=== PATIENT | male | born 1990 | race Hispanic/Latino ===

== ENCOUNTER 2020-05-18 23:38 | Inpatient (IN) | payer BC ==
[~2020-05-18 23:38] MED LIST: Iopamidol-370 76% 500 ML 1 ML ONE
[2020-05-18] MEDS ORDERED: Lorazepam 2 MG/ML VIAL ONE (23:59)
[2020-05-19] MEDS ORDERED: Ondansetron PF 4 MG/2 ML Vial ONE
[2020-05-19 00:02] LABS: #Basophils 0.1 thou/uL (0.0-0.2); #Eosinphils 0.2 thou/uL (0.0-0.7); #Lymphocytes 2.2 thou/uL (1.20-3.40); #Monocytes 0.7 thou/uL (0.11-0.59); #Neutrophils 11.6 thou/uL (1.40-6.50); %Basophils 0.9 % (0.0-1.0); %Eosinophils 1.3 % (0.0-10.0); %Lymphocytes 14.9 % (21.0-51.0); %Monocytes 4.6 % (0.0-10.0); %Neutrophils 78.4 % (42.0-75.0); Hemoglobin 16.6 g/dL (14.0-18.0); Mean Corpuscular HGB CONC 35.4 g/dL (32.0-36.0); Mean Corpuscular Hemoglobin 34.4 pg (27.0-31.0); Mean Corpuscular Volume 97.1 fL (78.0-98.0); Mean Platelet Volume 8.3 fL (7.4-10.4); Platelet Count 239 thou/uL (130-400); RBC Distribution Width 11.7 % (11.5-14.5); Red Blood Cell (RBC) Count 4.82 mill/uL (4.70-6.10); White Blood Cell (WBC) Count 14.9 thou/uL (4.8-10.8)
[2020-05-19] MEDS ORDERED: Haloperidol Lactate 5 MG/ML VIAL ONE (00:22)
[2020-05-19 00:24] LABS: ALT (SGPT) 40 U/L (8-55); AST (SGOT) 26 U/L (5-34); Albumin 4.3 g/dL (3.5-5.0); Alkaline Phosphatase 60 U/L (40-110); Anion Gap 17 mmol/L (10-20); BUN (Urea Nitrogen) 13 mg/dL (8.9-20.6); Bilirubin, Total 0.5 mg/dL (0.2-1.2); Calc. Creatinine Clearance 0 mL/min (70-130); Carbon Dioxide 21 mmol/L (22-29); Chloride 103 mmol/L (98-107); Globulin 3.2 g/dL (2.4-3.5); Glucose 157 mg/dL (70-105); Lipase 15 U/L (8-78); Potassium 3.4 mmol/L (3.5-5.1); Protein, Total 7.5 g/dL (6.0-8.3); Sodium 138 mmol/L (136-145)
[2020-05-19] MEDS ORDERED: Sucralfate 1 GM/10 ML UDCUP ONE (00:48)
[2020-05-19] MEDS ORDERED: Morphine 4 MG/ML VIAL ONE (01:15)
[2020-05-19] MEDS ORDERED: Ketorolac Tromethamine 30 MG/ML VIAL IVP PRN (03:51)
[2020-05-19] MEDS ORDERED: Ondansetron PF 4 MG/2 ML Vial IVP PRN (04:00)
[2020-05-19] MEDS ORDERED: Ondansetron ODT 4 MG TAB SL PRN (04:00)
[2020-05-19] MEDS ORDERED: Acetaminophen 325 MG TAB PO PRN (04:00)
[2020-05-19] MEDS ORDERED: Sodium Chloride 0.9% 1,000 ML IV SCH (04:00)
[2020-05-19 04:15] VITALS: BMI 26.4
[2020-05-19 08:35] LABS: SARS-CoV-2 PCR by NAA Not Detected (NotDetected)
[2020-05-19] MEDS ORDERED: Lactated Ringer's 1,000 ML IV SCH (09:00)
[2020-05-19] MEDS ORDERED: Ibuprofen 600 MG TAB PO PRN (11:42)
[2020-05-19] MEDS ORDERED: Acetaminophen 500 MG TAB PO PRN (11:42)
[2020-05-19 12:00] VITALS: BP 131/80; TEMP 98
[2020-05-19] MEDS ORDERED: Ketorolac Tromethamine 30 MG/ML VIAL IVP SCH (12:00)
== END 2020-05-19 12:33 | disposition home or self-care (01) | DRG 446 ==
LOC: ERS 23:38 → SJJU 05-19 03:03
PROVIDERS: ADMIT Specialist; ATTEND Specialist
DX: K80.00 Calculus of gallbladder with acute cholecystitis without obstruction (principal); F10.10 Alcohol abuse, uncomplicated
CPT/HCPCS: 74177; 76705; 80053; 82150; 83690; 85025; 87635; 93005; 94760; 96365; 96375; J1630; J1956; J2060; J2270; J2405; Q9967; U0003; U0005

== ENCOUNTER 2022-03-31 18:33 | Inpatient (IN) | payer BC, OTHER ==
[2022-03-31] MEDS ORDERED: Ketorolac Tromethamine 30 MG/ML VIAL ONE (19:40)
[2022-03-31 19:52] LABS: #Eosinphils 0.2 thou/uL (0.0-0.7); #Lymphocytes 1.1 thou/uL (1.20-3.40); #Monocytes 0.5 thou/uL (0.11-0.59); #Neutrophils 8.9 thou/uL (1.40-6.50); %Basophils 0.1 % (0.0-1.0); %Eosinophils 1.7 % (0.0-10.0); %Lymphocytes 10.4 % (21.0-51.0); %Monocytes 4.8 % (0.0-10.0); %Neutrophils 82.9 % (42.0-75.0); Hemoglobin 16.3 g/dL (14.0-18.0); Mean Corpuscular HGB CONC 34.2 g/dL (32.0-36.0); Mean Corpuscular Hemoglobin 34.7 pg (27.0-31.0); Mean Platelet Volume 8.3 fL (7.4-10.4); Platelet Count 179 10x3/uL (130-400); RBC Distribution Width 11.9 % (11.5-14.5); Red Blood Cell (RBC) Count 4.69 mill/uL (4.70-6.10); White Blood Cell (WBC) Count 10.8 10x3/uL (4.8-10.8)
[2022-03-31 20:12] LABS: ALT (SGPT) 102 U/L (8-55); AST (SGOT) 57 U/L (5-34); Albumin 4.3 g/dL (3.5-5.0); Alkaline Phosphatase 64 U/L (40-110); Anion Gap 12 mmol/L (10-20); BUN (Urea Nitrogen) 17 mg/dL (8.9-20.6); Bilirubin, Total 0.7 mg/dL (0.2-1.2); Calc. Creatinine Clearance 0 mL/min (70-130); Calcium 9.4 mg/dL (7.8-10.44); Carbon Dioxide 27 mmol/L (22-29); Chloride 104 mmol/L (98-107); Estimated GFR 90; Globulin 3.4 g/dL (2.4-3.5); Glucose 97 mg/dL (70-105); Lipase 29 U/L (8-78); Potassium 4.8 mmol/L (3.5-5.1); Protein, Total 7.7 g/dL (6.0-8.3); Sodium 138 mmol/L (136-145)
[2022-03-31] MEDS ORDERED: Ondansetron PF 4 MG/2 ML Vial IVP PRN (22:34)
[2022-03-31] MEDS ORDERED: Ipratropium/Albuterol 3 ML NEB NEB PRN (22:34)
[2022-03-31] MEDS ORDERED: Sodium Chloride 0.9% 1,000 ML IV SCH (22:45)
[2022-03-31 23:04] LABS: SARS-CoV-2 NAA Rapid Test Not Detected (NotDetected)
[2022-04-01] MEDS: Acetaminophen 500 MG TAB PO SCH ×5 (01:25→23:38)
[2022-04-01 02:21] VITALS: BMI 24.5
[2022-04-01 05:58] LABS: #Eosinphils 0.2 thou/uL (0.0-0.7); #Lymphocytes 1.6 thou/uL (1.20-3.40); #Monocytes 0.5 thou/uL (0.11-0.59); #Neutrophils 5.3 thou/uL (1.40-6.50); %Basophils 0.2 % (0.0-1.0); %Eosinophils 3.1 % (0.0-10.0); %Lymphocytes 21.5 % (21.0-51.0); %Monocytes 6.6 % (0.0-10.0); %Neutrophils 68.7 % (42.0-75.0); Hemoglobin 15.1 g/dL (14.0-18.0); Mean Corpuscular HGB CONC 34.4 g/dL (32.0-36.0); Mean Platelet Volume 8.3 fL (7.4-10.4); Platelet Count 156 10x3/uL (130-400); RBC Distribution Width 11.8 % (11.5-14.5); Red Blood Cell (RBC) Count 4.32 mill/uL (4.70-6.10); White Blood Cell (WBC) Count 7.7 10x3/uL (4.8-10.8)
[2022-04-01 06:26] LABS: Anion Gap 12 mmol/L (10-20); BUN (Urea Nitrogen) 14 mg/dL (8.9-20.6); Calc. Creatinine Clearance 135 mL/min (70-130); Calcium 8.7 mg/dL (7.8-10.44); Carbon Dioxide 23 mmol/L (22-29); Chloride 107 mmol/L (98-107); Estimated GFR 117; Glucose 104 mg/dL (70-105); Potassium 3.8 mmol/L (3.5-5.1); Sodium 138 mmol/L (136-145)
[2022-04-01] MEDS: Famotidine 20 MG TAB PO SCH ×2 (08:39→20:42)
[2022-04-01] MEDS: Cyclobenzaprine 10 MG TAB PO PRN ×2 (11:46→20:43)
[2022-04-02] MEDS: Acetaminophen 500 MG TAB PO SCH (06:41)
[2022-04-02 08:47] VITALS: BP 131/83; TEMP 97
[2022-04-02] MEDS: Famotidine 20 MG TAB PO SCH (09:02)
[2022-04-02 10:23] LABS: #Eosinphils 0.2 thou/uL (0.0-0.7); #Monocytes 0.5 thou/uL (0.11-0.59); #Neutrophils 7.9 thou/uL (1.40-6.50); %Basophils 0.1 % (0.0-1.0); %Eosinophils 1.8 % (0.0-10.0); %Lymphocytes 10.8 % (21.0-51.0); %Monocytes 5.5 % (0.0-10.0); %Neutrophils 81.9 % (42.0-75.0); Hemoglobin 15.6 g/dL (14.0-18.0); Mean Corpuscular HGB CONC 34.5 g/dL (32.0-36.0); Mean Corpuscular Hemoglobin 35.5 pg (27.0-31.0); Mean Platelet Volume 8.3 fL (7.4-10.4); Platelet Count 154 10x3/uL (130-400); RBC Distribution Width 11.9 % (11.5-14.5); Red Blood Cell (RBC) Count 4.41 mill/uL (4.70-6.10); White Blood Cell (WBC) Count 9.6 10x3/uL (4.8-10.8)
[2022-04-04] MEDS ORDERED: FLU VACC QS2022-23(6MOS UP)/PF 60 MCG/0.5 ML SYRINGE IM ONE (09:00)
== END 2022-04-02 12:00 | disposition home or self-care (01) | DRG 441 ==
LOC: ERS 18:33 → SURG A 22:34
PROVIDERS: ADMIT Specialist; ATTEND Specialist
DX: S36.115A Moderate laceration of liver, initial encounter (principal); S36.031A Moderate laceration of spleen, initial encounter; W11.XXXA Fall on and from ladder, initial encounter
CPT/HCPCS: 36415; 71260; 74177; 80048; 80053; 83690; 84484; 85025; 96374; G0390; J1885; J7050; U0002

== ENCOUNTER 2022-12-14 08:59 | Inpatient (IN) | payer BC, OTHER ==
[2022-12-14] MEDS ORDERED: Morphine 4 MG/ML VIAL ONE ×2 (09:24→09:55)
[2022-12-14] MEDS ORDERED: Ondansetron PF 4 MG/2 ML Vial ONE ×2 (09:25→09:55)
[2022-12-14] MEDS ORDERED: Iopamidol-370 76% 500 ML MDV (1 ML CHARGE) ONE (09:56)
[2022-12-14] MEDS ORDERED: Ketorolac Tromethamine 30 MG/ML VIAL ONE ×2 (10:57→18:03)
[2022-12-14] MEDS ORDERED: Piperacillin/Tazobactam 3.375 GM VIAL ONE (10:57)
[2022-12-14 10:58] LABS: #Eosinphils 0.2 thou/uL (0.0-0.7); #Monocytes 0.8 thou/uL (0.11-0.59); #Neutrophils 12.8 thou/uL (1.40-6.50); %Basophils 0.2 % (0.0-1.0); %Eosinophils 1.1 % (0.0-10.0); %Lymphocytes 6.4 % (21.0-51.0); %Monocytes 5.6 % (0.0-10.0); %Neutrophils 86.4 % (42.0-75.0); Hematocrit 48.2 % (42.0-52.0); Hemoglobin 17.3 g/dL (14.0-18.0); Mean Corpuscular HGB CONC 35.9 g/dL (32.0-36.0); Mean Corpuscular Hemoglobin 34.5 pg (27.0-31.0); Mean Platelet Volume 10.9 fL (7.4-10.4); Platelet Count 184 10x3/uL (130-400); RBC Distribution Width 11.9 % (11.5-14.5); Red Blood Cell (RBC) Count 5.02 mill/uL (4.70-6.10); White Blood Cell (WBC) Count 14.8 10x3/uL (4.8-10.8)
[2022-12-14] MEDS ORDERED: Glycopyrrolate 0.4 MG/ 2 ML VIAL SLOW IVP SCH (11:00)
[2022-12-14 11:17] LABS: ALT (SGPT) 228 U/L (8-55); AST (SGOT) 314 U/L (5-34); Albumin 4.2 g/dL (3.5-5.0); Alkaline Phosphatase 95 U/L (40-110); Anion Gap 16 mmol/L (10-20); BUN (Urea Nitrogen) 10 mg/dL (8.9-20.6); Bilirubin, Total 4.1 mg/dL (0.2-1.2); Calc. Creatinine Clearance 0 mL/min (70-130); Calcium 8.8 mg/dL (7.8-10.44); Carbon Dioxide 21 mmol/L (22-29); Chloride 106 mmol/L (98-107); Estimated GFR 110; Globulin 2.5 g/dL (2.4-3.5); Glucose 172 mg/dL (70-105); Potassium 3.4 mmol/L (3.5-5.1); Protein, Total 6.7 g/dL (6.0-8.3); Sodium 140 mmol/L (136-145)
[2022-12-14 11:18] LABS: CRP (Inflammatory) Less than 0.50 mg/dL (= or < 0.5)
[2022-12-14] MEDS ORDERED: GLYCOPYRROLATE/PF 0.2 MG/ML VIAL SLOW IVP SCH (11:30)
[2022-12-14 11:44] LABS: Lipase 12675 U/L (8-78)
[2022-12-14] MEDS ORDERED: Morphine 2 MG/ML VIAL SLOW IVP PRN ×2 (12:00→16:49)
[2022-12-14 12:02] LABS: Bilirubin Negative (Negative); Blood, Urine Negative (Negative); Glucose, Urine (Dipstick) Negative (Negative); Ketone, Urine Negative (Negative); Leukocyte Negative (Negative); Nitrite Negative (Negative); Protein, Urine (Dipstick) Negative (Neg-Trace); pH, Urine 6.5 (5.0-9.0)
[2022-12-14] MEDS ORDERED: Ondansetron PF 4 MG/2 ML Vial IVP PRN ×2 (12:02→18:12)
[2022-12-14] MEDS ORDERED: Senokot S 8.6-50 MG TAB PO PRN (12:02)
[2022-12-14] MEDS ORDERED: Ondansetron ODT 4 MG TAB PO PRN ×2 (12:02→12:05)
[2022-12-14 12:03] LABS: Clarity Clear (Clear); Specific Gravity, Urine 1.008 (1.002-1.036)
[2022-12-14] MEDS ORDERED: Lorazepam 2 MG/ML VIAL IM PRN (12:05)
[2022-12-14] MEDS ORDERED: Lorazepam 1 MG TAB PO PRN (12:05)
[2022-12-14 12:10] LABS: Bacteria/HPF None Seen HPF (None Seen); CAUTI Indications for Culture Dysuria,urgency,freq; RBC/HPF None Seen HPF (0-3); Squamous Epithelial None Seen HPF (0-3); WBC/HPF None Seen HPF (0-3)
[2022-12-14 12:12] LABS: Urine Culture Reflex No No
[2022-12-14] MEDS ORDERED: Electrolyte Replacement Protocol 1 EACH FS SCH (12:15)
[2022-12-14] MEDS ORDERED: Lactated Ringer's 1,000 ML IV SCH ×2 (12:15→17:00)
[2022-12-14] MEDS ORDERED: Folic Acid 1 MG TAB PO SCH (12:30)
[2022-12-14] MEDS ORDERED: Multivit, Therapeutic 1 TAB PO SCH (12:30)
[2022-12-14] MEDS ORDERED: fentaNYL 50 mcg/mL 1 mL Vial ONE ×2 (12:35→12:37)
[2022-12-14] MEDS: Thiamine HCl 200 MG/2 ML VIAL SLOW IVP SCH (14:38)
[2022-12-14] MEDS ORDERED: Piperacillin/Tazobactam 3.375 GM in Sodium Chloride 0.9% 100 ML IVPB SCH (15:00)
[2022-12-14 15:17] VITALS: BMI 27.2
[2022-12-14] MEDS ORDERED: FLU VACC QS2023-24(6MOS UP)/PF 60 MCG/0.5 ML SYRINGE IM ONE (15:45)
[2022-12-14] MEDS: Piperacillin/Tazobactam 3.375 GM in Sodium Chloride 0.9% 100 ML IVPB SCH ×2 (15:47→23:12)
[2022-12-14] MEDS: Lactated Ringer's 1,000 ML IV SCH ×3 (17:21→23:09)
[2022-12-14] MEDS ORDERED: diphenhydrAMINE 50 MG/ML VIAL IVP PRN (18:12)
[2022-12-14] MEDS ORDERED: diphenhydrAMINE 50 MG/ML VIAL IM PRN (18:12)
[2022-12-14] MEDS ORDERED: Promethazine HCl 25 MG/ML VIAL IM PRN (18:12)
[2022-12-14] MEDS ORDERED: FENTANYL 500 MCG/10 ML VIAL 2,000 MCG in Sodium Chloride 0.9% 60 ML IV PRN (18:12)
[2022-12-14] MEDS ORDERED: diphenhydrAMINE 25 MG CAP PO PRN (18:12)
[2022-12-14] MEDS ORDERED: Naloxone HCl 0.4 mg/ml Vial IV PRN (18:12)
[2022-12-14] MEDS ORDERED: Communication Order-Pharmacy FS SCH (18:15)
[2022-12-14] MEDS ORDERED: Ketorolac Tromethamine 30 MG/ML VIAL IVP SCH (18:15)
[2022-12-14 18:30] LABS: PTT 22.3 sec (22.9-36.1); Prothrombin Time 13.6 sec (12.0-14.7)
[2022-12-14] MEDS ORDERED: Fentanyl CADD 100 ML IVPB SCH (18:30)
[2022-12-14] MEDS: Famotidine 20 MG TAB PO SCH (20:23)
[2022-12-14] MEDS: Famotidine/PF 20 mg/2ml Vial SLOW IVP SCH (20:23)
[2022-12-14] MEDS ORDERED: Heparin 5,000 UNITS/ML VIAL SC SCH (21:00)
[2022-12-14] MEDS: Ketorolac Tromethamine 30 MG/ML VIAL IVP SCH (23:10)
[2022-12-15] MEDS: Lactated Ringer's 1,000 ML IV SCH ×5 (03:19→19:38)
[2022-12-15] MEDS: Ketorolac Tromethamine 30 MG/ML VIAL IVP SCH ×2 (05:19→14:09)
[2022-12-15 06:18] LABS: Hematocrit 48.9 % (42.0-52.0); Hemoglobin 17.8 g/dL (14.0-18.0); Mean Corpuscular HGB CONC 36.4 g/dL (32.0-36.0); Mean Corpuscular Hemoglobin 34.8 pg (27.0-31.0); Mean Corpuscular Volume 95.7 fl (78.0-98.0); Mean Platelet Volume 10.5 fL (7.4-10.4); Platelet Count 158 10x3/uL (130-400); Red Blood Cell (RBC) Count 5.11 mill/uL (4.70-6.10); White Blood Cell (WBC) Count 19.5 10x3/uL (4.8-10.8)
[2022-12-15 06:23] LABS: Delete Auto Diff?? YES; Manual Diff?? YES
[2022-12-15 06:45] LABS: ALT (SGPT) 312 U/L (8-55); AST (SGOT) 221 U/L (5-34); Albumin 3.9 g/dL (3.5-5.0); Alkaline Phosphatase 104 U/L (40-110); Anion Gap 14 mmol/L (10-20); BUN (Urea Nitrogen) 9 mg/dL (8.9-20.6); Bilirubin, Direct 2.8 mg/dL (0.1-0.3); Calc. Creatinine Clearance 156 mL/min (70-130); Calcium 8.8 mg/dL (7.8-10.44); Carbon Dioxide 23 mmol/L (22-29); Cardiac Risk 1.7 (Less than 4.5); Chloride 104 mmol/L (98-107); Cholesterol 96 mg/dl (< 200 Desired); Estimated GFR 119; Glucose 112 mg/dL (70-105); HDL Cholesterol 57 mg/dL (>60 Neg Risk); LDL Cholesterol, Calculated 30 mg/dL; Magnesium 1.6 mg/dL (1.6-2.6); Phosphorus 2.6 mg/dL (2.3-4.7); Potassium 3.6 mmol/L (3.5-5.1); Protein, Total 6.3 g/dL (6.0-8.3); Sodium 137 mmol/L (136-145); Triglycerides 43 mg/dL (Less than 150)
[2022-12-15 06:58] LABS: Lipase 1983 U/L (8-78)
[2022-12-15] MEDS ORDERED: Magnesium 2 GM/50 ML(in water) 2 GM in Premix Bag 1 BAG IVPB SCH (08:00)
[2022-12-15 08:39] LABS: Band 33 % (5-11); CellaVision Operator ID LAB.GE; Metamyelocyte 1 % (0-0); Monocytes 3 % (0-10); Neutrophil 62 % (42-75); Platelet Adequacy Comment Platelets Normal; Polychromasia SLIGHT = 2-3 cells HPF (0-2); Reactive Lymphocytes 1 % (0-10); Total Cell Count 101
[2022-12-15] MEDS: Famotidine 20 MG TAB PO SCH (08:51)
[2022-12-15] MEDS: Folic Acid 1 MG TAB PO SCH (08:51)
[2022-12-15] MEDS: Multivit, Therapeutic 1 TAB PO SCH (08:53)
[2022-12-15] MEDS ORDERED: fentaNYL 50 mcg/mL 1 mL Vial ONE ×2 (09:09→09:21)
[2022-12-15] MEDS ORDERED: Sodium Chloride 0.9% 100 ML ONE (09:14)
[2022-12-15] MEDS ORDERED: Piperacillin/Tazobactam 3.375 GM VIAL ONE (09:14)
[2022-12-15] MEDS ORDERED: Iopamidol 15 ML ONE (09:17)
[2022-12-15] MEDS ORDERED: Indomethacin 50 MG SUPP ONE (09:18)
[2022-12-15] MEDS ORDERED: Glucagon 1 MG/ML KIT ONE (09:19)
[2022-12-15] MEDS: Piperacillin/Tazobactam 3.375 GM in Sodium Chloride 0.9% 100 ML IVPB SCH ×2 (09:21→16:45)
[2022-12-15] MEDS ORDERED: Rocuronium Bromide 10 MG/ML (10ML VIAL) ONE ×2 (09:59→10:39)
[2022-12-15] MEDS ORDERED: Succinylcholine 200 MG/10 ml SYRINGE FS ONE (09:59)
[2022-12-15] MEDS ORDERED: PROPOFOL 200 MG/20 ML VIAL ONE (09:59)
[2022-12-15] MEDS ORDERED: Esmolol 100 MG/10 ML VIAL ONE (09:59)
[2022-12-15] MEDS ORDERED: Lidocaine 1% PF 5 ML VIAL ONE (09:59)
[2022-12-15] MEDS ORDERED: fentaNYL PF 100 MCG/2 ML SYRINGE ONE (10:05)
[2022-12-15] MEDS ORDERED: EPINEPHrine 1 MG/ML AMP ONE (10:30)
[2022-12-15] MEDS ORDERED: Bupivacaine 0.25% HCL 30 ML VIAL ONE (10:30)
[2022-12-15] MEDS ORDERED: Ketorolac Tromethamine 30 MG/ML VIAL ONE (10:39)
[2022-12-15] MEDS ORDERED: PHENYLEPHRINE-NS 100 MCG/ML 10 ML SYRINGE ONE (10:39)
[2022-12-15] MEDS ORDERED: Ondansetron PF 4 MG/2 ML Vial ONE (10:39)
[2022-12-15] MEDS ORDERED: SUGAMMADEX SODIUM 200 MG/2 ML VIAL ONE (11:40)
[2022-12-15] MEDS ORDERED: Sevoflurane 250 ML INH ANEST BOTTLE ONE (11:55)
[2022-12-15] MEDS ORDERED: Lorazepam 1 MG TAB PO PRN (12:05)
[2022-12-15] MEDS ORDERED: PACU-Morphine 4MG/ML VIAL SLOW IVP PRN (12:18)
[2022-12-15] MEDS ORDERED: Promethazine HCl 25 MG/ML VIAL IM PRN (12:18)
[2022-12-15] MEDS ORDERED: Meperidine HCl/PF 25 MG/ML VIAL SLOW IVP PRN (12:18)
[2022-12-15] MEDS ORDERED: Ondansetron HCl/PF 4 MG/2 ML Vial IVP PRN (12:18)
[2022-12-15] MEDS ORDERED: traMADol HCl 50 MG TAB PO PRN (12:23)
[2022-12-15] MEDS: Famotidine/PF 20 mg/2ml Vial SLOW IVP SCH ×2 (12:35→19:45)
[2022-12-15] MEDS ORDERED: Acetaminophen 325 MG TAB PO SCH (13:00)
[2022-12-15] MEDS ORDERED: traMADol HCl 50 MG TAB PO SCH (13:00)
[2022-12-15] MEDS: Thiamine HCl 200 MG/2 ML VIAL SLOW IVP SCH (13:52)
[2022-12-15] MEDS: traMADol HCl 50 MG TAB PO SCH (17:34)
[2022-12-15] MEDS: Acetaminophen 325 MG TAB PO SCH (17:35)
[2022-12-15] MEDS: Ibuprofen 200 MG TAB PO PRN (19:35)
[2022-12-16] MEDS: traMADol HCl 50 MG TAB PO SCH ×5 (00:47→23:36)
[2022-12-16] MEDS: Acetaminophen 325 MG TAB PO SCH ×5 (00:48→23:35)
[2022-12-16] MEDS: Piperacillin/Tazobactam 3.375 GM in Sodium Chloride 0.9% 100 ML IVPB SCH ×4 (00:49→23:38)
[2022-12-16] MEDS: Lactated Ringer's 1,000 ML IV SCH ×5 (00:50→23:35)
[2022-12-16 05:30] LABS: Hemoglobin 16.3 g/dL (14.0-18.0); Mean Corpuscular HGB CONC 35.4 g/dL (32.0-36.0); Mean Corpuscular Hemoglobin 34.7 pg (27.0-31.0); Mean Corpuscular Volume 97.9 fl (78.0-98.0); Mean Platelet Volume 10.9 fL (7.4-10.4); Platelet Count 102 10x3/uL (130-400); RBC Distribution Width 12.2 % (11.5-14.5); White Blood Cell (WBC) Count 14.5 10x3/uL (4.8-10.8)
[2022-12-16 06:00] LABS: ALT (SGPT) 160 U/L (8-55); AST (SGOT) 71 U/L (5-34); Albumin 3.2 g/dL (3.5-5.0); Alkaline Phosphatase 68 U/L (40-110); Anion Gap 10 mmol/L (10-20); BUN (Urea Nitrogen) 8 mg/dL (8.9-20.6); Bilirubin, Direct 1.1 mg/dL (0.1-0.3); Bilirubin, Total 1.6 mg/dL (0.2-1.2); Calc. Creatinine Clearance 173 mL/min (70-130); Carbon Dioxide 23 mmol/L (22-29); Chloride 105 mmol/L (98-107); Estimated GFR 123; Glucose 101 mg/dL (70-105); Potassium 3.8 mmol/L (3.5-5.1); Protein, Total 5.5 g/dL (6.0-8.3); Sodium 134 mmol/L (136-145)
[2022-12-16 06:37] LABS: Delete Auto Diff?? YES; Manual Diff?? YES
[2022-12-16 08:06] LABS: Band 41 % (5-11); CellaVision Operator ID LAB.GE; Lymphocytes 2 % (21-51); Metamyelocyte 13 % (0-0); Monocytes 6 % (0-10); Myelocyte 1 % (0-0); Neutrophil 38 % (42-75); Platelet Adequacy Comment Platelets Decreased; Polychromasia SLIGHT = 2-3 cells HPF (0-2); Total Cell Count 108; Vacuoles MODERATE
[2022-12-16] MEDS: Ibuprofen 200 MG TAB PO PRN ×3 (08:29→20:51)
[2022-12-16] MEDS: Folic Acid 1 MG TAB PO SCH (08:29)
[2022-12-16] MEDS: Multivit, Therapeutic 1 TAB PO SCH (08:30)
[2022-12-16] MEDS: Famotidine/PF 20 mg/2ml Vial SLOW IVP SCH ×2 (08:30→20:51)
[2022-12-16] MEDS ORDERED: Lorazepam 1 MG TAB PO PRN (12:05)
[2022-12-16] MEDS: Thiamine HCl 200 MG/2 ML VIAL SLOW IVP SCH (13:43)
[2022-12-17] MEDS: Ibuprofen 200 MG TAB PO PRN ×2 (03:07→08:03)
[2022-12-17] MEDS: Acetaminophen 325 MG TAB PO SCH ×2 (05:22→11:30)
[2022-12-17] MEDS: traMADol HCl 50 MG TAB PO SCH ×2 (05:23→11:31)
[2022-12-17] MEDS: Lactated Ringer's 1,000 ML IV SCH (05:30)
[2022-12-17] MEDS: Famotidine/PF 20 mg/2ml Vial SLOW IVP SCH (08:02)
[2022-12-17] MEDS: Folic Acid 1 MG TAB PO SCH (08:03)
[2022-12-17] MEDS: Multivit, Therapeutic 1 TAB PO SCH (08:03)
[2022-12-17] MEDS: Piperacillin/Tazobactam 3.375 GM in Sodium Chloride 0.9% 100 ML IVPB SCH (08:04)
[2022-12-17 08:48] VITALS: BP 156/95; TEMP 97.6
[2022-12-17 09:48] LABS: ALT (SGPT) 91 U/L (8-55); AST (SGOT) 38 U/L (5-34); Albumin 3.1 g/dL (3.5-5.0); Alkaline Phosphatase 53 U/L (40-110); Anion Gap 11 mmol/L (10-20); BUN (Urea Nitrogen) 7 mg/dL (8.9-20.6); Bilirubin, Total 1.2 mg/dL (0.2-1.2); Calc. Creatinine Clearance 168 mL/min (70-130); Calcium 8.7 mg/dL (7.8-10.44); Carbon Dioxide 27 mmol/L (22-29); Chloride 99 mmol/L (98-107); Estimated GFR 122; Globulin 2.7 g/dL (2.4-3.5); Glucose 91 mg/dL (70-105); Potassium 3.8 mmol/L (3.5-5.1); Protein, Total 5.8 g/dL (6.0-8.3); Sodium 133 mmol/L (136-145)
[2022-12-17] MEDS ORDERED: Lorazepam 0.5 MG TAB PO PRN (12:05)
[2022-12-17] MEDS ORDERED: Thiamine 100 MG TAB PO SCH (14:00)
== END 2022-12-17 13:11 | disposition home or self-care (01) | DRG 419 ==
LOC: ERS 08:59 → T4-A 11:45
PROVIDERS: ADMIT Internal Medicine; ATTEND Internal Medicine
PROC: 0FT44ZZ Resection of Gallbladder, Percutaneous Endoscopic Approach (ICD-10-PCS; principal; 2022-12-15)
PROC: 0FJB8ZZ Inspection of Hepatobiliary Duct, Via Natural or Artificial Opening Endoscopic (ICD-10-PCS; 2022-12-15)
PROC: 3E033XZ Introduction of Vasopressor into Peripheral Vein, Percutaneous Approach (ICD-10-PCS; 2022-12-15)
DX: K80.12 Calculus of gallbladder with acute and chronic cholecystitis without obstruction (principal); K82.8 Other specified diseases of gallbladder; E87.6 Hypokalemia; F10.20 Alcohol dependence, uncomplicated; D72.829 Elevated white blood cell count, unspecified; R79.89 Other specified abnormal findings of blood chemistry; R60.0 Localized edema; Z79.899 Other long term (current) drug therapy; Z71.41 Alcohol abuse counseling and surveillance of alcoholic; Z98.890 Other specified postprocedural states
CPT/HCPCS: 36415; 36416; 74177; 74330; 76705; 80048; 80053; 80061; 80076; 81001; 83690; 83735; 84100; 85025; 85610; 85730; 86140; 88304; 93005; 93010; 96361; 96365; 96375; 96376; C1889; J0171; J1611; J1650; J1885; J2270; J2272; J2405; J2543; J2704; J3010; J3411; J3475; J3490; J7120; Q9967; S0020; S0028